=== PATIENT | female | born 1950 | race Caucasian/White ===

== ENCOUNTER 2020-10-12 07:47 | Day surgery (SDC) | payer OTHER ==
[2020-10-06 15:36] VITALS: BMI 34.2
[2020-10-12] MEDS ORDERED: PROPOFOL 20 ML ONE ×3 (07:53)
[2020-10-12] MEDS ORDERED: LIDOCAINE HCL/PF 2% SDV 5ML VIAL ONE (07:53)
[2020-10-12 08:10] VITALS: TEMP 98
[2020-10-12 09:48] VITALS: BP 122/71; PULSE 82
== END 2020-10-12 09:48 | disposition home or self-care (01) ==
LOC: FASU-ENDO 07:47
PROVIDERS: ATTEND Internal Medicine Gastroenterology
PROC: 0DBL8ZX Excision of Transverse Colon, Via Natural or Artificial Opening Endoscopic, Diagnostic (ICD-10-PCS; 2020-10-12)
PROC: 0DBC8ZX Excision of Ileocecal Valve, Via Natural or Artificial Opening Endoscopic, Diagnostic (ICD-10-PCS; principal; 2020-10-12 08:22)
DX: Z09 Encounter for follow-up examination after completed treatment for conditions other than malignant neoplasm (principal); Z86.010 Personal history of colon polyps; D12.0 Benign neoplasm of cecum; D12.3 Benign neoplasm of transverse colon
CPT/HCPCS: 88305-TC

== ENCOUNTER 2022-07-25 07:09 | Day surgery (SDC) | payer OTHER ==
[2022-07-21 12:42] VITALS: BMI 34.5
[2022-07-25] MEDS ORDERED: PROPOFOL 80 ML ONE (07:29)
[2022-07-25] MEDS ORDERED: LIDOCAINE HCL/PF 2% SDV 5ML VIAL ONE (07:29)
[2022-07-25 08:47] VITALS: RESP 19
[2022-07-25 09:07] VITALS: BP 130/78; PULSE 85; TEMP 97.7
== END 2022-07-25 09:07 | disposition home or self-care (01) ==
LOC: FASU-ENDO 07:09
PROVIDERS: ATTEND Internal Medicine Gastroenterology
PROC: 0DJD8ZZ Inspection of Lower Intestinal Tract, Via Natural or Artificial Opening Endoscopic (ICD-10-PCS; principal; 2022-07-25 07:56)
DX: Z12.11 Encounter for screening for malignant neoplasm of colon (principal); Z86.010 Personal history of colon polyps; K57.30 Diverticulosis of large intestine without perforation or abscess without bleeding